=== PATIENT | female | born 1990 | race Caucasian/White ===

== ENCOUNTER 2025-01-28 14:46 | Outpatient (REF) | payer MEDICAID, SELFPAY ==
--- OUTSIDE RECORDS SUMMARY | 2025-01-28 13:45 | XMS_ITS | Encounter Summary ---
Author Organization [employer] Address [address] [facility] 7[address] [place] [address] Care Team Providers Care Geology Professor Name Role Phone June De Jesus Primary Care Provider [phone] Encounter Details Date Type Department Care Team ([facility] Contact Info) Description 01/28/2025 1:45 PM EDT Office Visit [facility] [address] [place] [address] June De Jesus FNP [address] [place] [address] Well adult exam (Primary Dx) Social History Tobacco Use Types Packs/Day Years Used Date Smoking Tobacco: Never Passive Smoke Exposure: Never Smokeless Tobacco: Never Tobacco Cessation:Counseling Given: Not Answered Depression Answer Date Recorded Patient Health Questionnaire-9 Score 0 01/28/2025 Patient Health Questionnaire-9 Score 0 01/28/2025 Last PHQ-9: Questionnaire Data Not on file 1 Housing Stability Answer Date Recorded What is your housing situation today? I have lindy finney 01/28/[address] you li ve. Do you have problems with any of the following? None of the above 01/28/2025 Food Insecurity Answer Date Recorded Within the past 12 months, y ou worried that your food would run out before you got money to buy more: Never True 01/28/2025 Within the past 12 months,th e food you bought just didn't last and you didn't have enough money to get more: Never True Transportation Answer Date Recorded In the past 12 months, has l ack of transportation kept you from medical appts, meetings, work or from getting things needed for daily living? No 01/28/2025 Utilities Answer Date Recorded In the past 12 months, has t he electric, gas, oil or water company threatened to shut off services in your home? No 01/28/2025 Depression Answer Date Recorded Patient Health Questionnaire-2 Score 0 01/28/2025 Internet Access Answer Date Recorded Internet Access Q1 Yes 01/28/2025 Internet Access Q2 Not on file 01/28/2025 Comments Unknown Sex and Gender Information Value Date Recorded Sex Assigned at Female 01/31/2022 10:17 AM EDT Legal Sex Female 10:17 AM EDT Gender Identity Female 09/21/2022 3:00 PM EDT Sexual Orientation Straight 01/31/2022 10 :17 AM EDT documented as of this encounter Last Filed Vital Signs Vital Sign Reading Time Taken Comments Blood Pressure 138/72 01/28/2025 1:44 PM EDT Pulse 94 01/28/2025 1:44 PM EDT Temperature 36.9 C (98.4 F) 01/28/2025 1:44 PM EDT Respiratory Rate 16 01/28/2025 1:44 PM EDT Oxygen Saturation 96% 01/28/2025 1:44 PM EDT Inhaled Oxygen Concentration - - Weight 63.2 kg (139 lb 4 oz) 01/28/2025 1:44 PM EDT Height 152 cm (4' 11.84 ) 01/28/2025 1:44 PM EDT Body Mass Index 27.34 01/28/2025 1:44 PM EDT documented in this encounter Functional Status * Over the past 2 weeks, how often have you been bothered by any of the following problems? Question Answer Date of Assessment Author Patient Health Questionnaire -2 Score 0 01/28/2025 3:18 PM EDT Sharri Foss MA * Little interest or pleasure in doing things Answer Date of Assessment Author Not at all 01/28/2025 3:18 PM EDT Sharri Carrizales MA * Feeling down, depressed, or hopeless Answer Date of Assessment Author Not at all 01/28/2025 3:18 PM EDT Sharri Carrizales MA * Trouble falling or staying asleep, or sleeping too much Answer Date of Assessment Author Not at all 01/28/2025 3:18 PM EDT Sharri Carrizales MA * Feeling tired or having little energy Answer Date of Assessment Author Not at all 01/28/2025 3:18 PM EDT Sharri Carrizales MA * Poor appetite or overeating Answer Date of Assessment Author Not at all 01/28/2025 3:18 PM EDT Sharri Carrizales MA * Feeling bad about yourself - or that you are a failure or have let yourself or your family down Answer Date of Assessment Author Not at all 01/28/2025 3:18 PM EDT Sharri Carrizales MA * Trouble concentrating on things, such as reading the newspaper or watching television Answer Date of Assessment Author Not at all 01/28/2025 3:18 PM EDT Sharri Carrizales MA * Moving or speaking so slowly that other people could have noticed? Or the opposite - being so fidgety or restless that you have been moving around a lot more than usual. Answer Date of Assessment Author Not at all 01/28/2025 3:18 PM EDT Sharri Carrizales MA * Thoughts that you would be better off or hurting yourself in some way Answer Date of Assessment Author Not at all 01/28/2025 3:18 PM EDT Sharri Carrizales MA * Patient Health Questionnaire-9 Score Answer Date of Assessment Author 0 01/28/2025 3:18 PM EDT Sharri Carrizales MA * Over the last 2 weeks, how often have you been bothered by any of the following problems? Question Answer Date of Assessment Author Feeling nervous, anxious, or on edge 0 01/28/2025 3:17 PM EDT Sharri Foss MA Not being able to stop or control worrying 0 01/28/2025 3:17 PM EDT Sharri Foss MA Worrying too much about different things 0 01/28/2025 3:17 PM EDT Sharri Foss MA Trouble relaxing 0 01/28/2025 3:17 PM EDT Sharri Stafford, [place] Being so restless that it is hard to sit still 0 01/28/2025 3:17 PM EDT Sharri Foss MA Becoming easily annoyed or irritable 0 01/28/2025 3:17 PM EDT Sharri Foss MA Feeling afraid as if somethi ng awful might happen 0 01/28/2025 3:17 PM EDT Sharri Foss MA GORDON-7 Total Score 0 01/28/2025 3:17 PM EDT Sharri Foss MA documented as of this encounter Plan of Treatment Upcoming Encounters Date Type Department Care Team (Late st Contact Info) Description 02/25/2025 2:15 PM EST Procedure Visit [facility] [address] [place] [phone] Laura Stoner CNM [address] [place] [address] 03/11/2025 2:30 PM EST Office Visit [facility] [address] [place] [phone] June De Jesus FNP [address] [place] [address] Scheduled Orders Name Type Priority Associated Diagnoses Orde r Schedule Hepatitis B Core Antibody, Total Lab Routine Well adult exam Expected: 01/28/2025 (Approximate), Expires: 01/28/2026 Hepatitis B Surface Antibody, Qualitative Lab Routine Well adult exam Expected: 01/28/2025 (Approximate), Expires: 01/28/2026 Hepatitis B surface antigen, EIA Lab Routine Well adult exam Expected: 01/28/2025 (Approximate), Expires: 01/28/2026 Hepatitis C Antibody with Reflex to HCV, RNA, Quantitative, Real-Time PCR Lab Routine Well adult exam Expected: 01/28/2025, Expires: 01/28/2026 HIV-1/2 Antigen and Antibodies, Fourth Generation, with Reflexes Lab Routine Well adult exam Expected: 01/28/2025 (Approximate), Expires: 01/28/2026 Hemoglobin A1c Lab Routine Well adult exam Expected: 01/28/2025 (Approximate), Expires: 01/28/2026 Chlamydia/N. Gonorrhoeae, PCR, Urine Lab Routine Well adult exam Ordered: 01/28/2025 documented as of this encounter Procedures Procedure Name Priority Date/Time Associated Diagnosis Comments CBC WITH AUTO DIFFERENTIAL Routine 01/28/2025 3:00 PM EDT Well adult exam TSH Routine 01/28/2025 3:00 PM EDT Well adult exam LIPID PANEL, STANDARD Routine 01/28/2025 3:00 PM EDT Well adult exam COMPREHENSIVE METABOLIC PANEL Routine 01/28/2025 3:00 PM EDT Well adult exam documented in this encounter Results * (ABNORMAL) Lipid Panel, Standard (01/28/2025 3:00 PM EDT) Triglycerides 117 <150 mg/dL [facility] Comment:Desirable Triglyceri de: less than 150 mg/dLBorderline High Triglyceride 150-199 mg/dLHigh Triglyceride: 200-499 mg/dLVery High Triglyceride: greater than or equal to 5OO mg/dL Cholesterol 318(H) <200 mg/dL [facility] Comment:Desirable Cholestero l: less than 200 mg/dLBorderline High Cholesterol: 200-239 mg/dLHigh Cholesterol: greater than 239 mg/dL LDL Cholesterol Calculated 209(H) <100 mg/dL [facility] Comment:Desirable LDL: less than 100 mg/dLNear Optimal/Above Optimal LDL: 110- 129 mg/dLBorderline High LDL: 130-159 mg/dLHigh LDL: 160-189 mg/dLVery High LDL: greater than or equal to 190 mg/dL HDL Cholesterol 86 >40 mg/dL [facility] Comment:Desirable HDL: great er than 40 mg/dL Note: This HDL assay may give artificially low results in patients with liver disease. Blood Venous blood specimen / Unknown 01/28/2025 3:00 PM EDT 01/28/2025 4:28 PM EDT us June De Jesus [employer] CONSULT[employer] LAB BLOOD ORDERABLES Final Res ult [facility] [address] [place] [phone] [phone] * (ABNORMAL) CBC auto differential (01/28/2025 3:00 PM EDT) White Blood Count 5.5 4.8 - 10.8 X10*3/uL [facility] Red Blood Count 4.67 4.20 - 5.50 X10*6/uL [facility] Hemoglobin 10.4(L) 12.0 - 16.0 g/dl [facility] Hematocrit 35.2(L) 37.0 - 47.0 % [facility] Mean Corpuscular Volume 75.4(L) 80.0 - 98.0 fL [facility] Mean Corpuscular Hemoglobin 22.3(L) 27.0 - 33.0 pg [facility] Mean Corpuscular HGB Conc 29.5(L) 31.0 - 35.0 g/dl [facility] Red Cell Distribution Width 16.9(H) 11.0 - 16.0 % [facility] Platelet Count 316 160 - 400 X10*3/uL [facility] Mean Platelet Volume 10.6 9.4 - 12.3 fL [facility] Neutrophils Percent Auto 61.3 45 - 73 % [facility] Imm Gran Pct Auto 0.2 0.0 - 0.4 % [facility] Lymphocytes Percent Auto 29.4 20 - 40 % [facility] Monocytes Percent Auto 7.1 2 - 11 % [facility] Eosinophils Percent Auto 0.9 0 - 4 % [facility] Basophils Percent Auto 1.1 0 - 2 % [facility] NRBC Pct Auto 0.0 0.0 - 0.2 /100WBC [facility] Neutrophils Absolute Auto 3.4 2.0 - 8.3 x10*3/uL [facility] Imm Gran Abs Auto 0.01 0.00 - 0.03 X10*3/uL [facility] Lymphocytes Absolute Auto 1.6 1.2 - 4.9 X10*3/uL [facility] Monocytes Absolute Auto 0.4 0.1 - 1.2 X10*3/uL [facility] Eosinophils Absolute Auto 0.1 0.0 - 0.4 X10*3/uL [facility] Basophils Absolute Auto 0.1 0.0 - 0.2 X10*3/uL [facility] NRBC Abs Auto 0.000 0.0 - 0.012 X10*3/uL [facility] Blood Venous blood specimen / Unknown 01/28/2025 3:00 PM EDT 01/28/2025 4:28 PM EDT [facility] B[facility] ORDER[facility] Final Res ult Performing Organization Address [facility]/ZIP Co de Phone Number [facility] [address] [place] [address] [phone] * TSH (01/28/2025 3:00 PM EDT) Thyroid Stimulating Hormone 1.68 0.32 - 4.0 uIU/mL [facility] Comment:TSH 3rd Generation ( [facility]) Blood Venous blood specimen / Unknown 01/28/2025 3:00 PM EDT 01/28/2025 4:28 PM EDT [facility] LAB BLOOD ORDERABLES Final Res ult Performing Organization Address [facility]/ZIP Co de Phone Number [facility] [address] [place] [phone] [phone] * (ABNORMAL) Comprehensive Metabolic Panel (01/28/2025 3:00 PM EDT) Sodium 142 135 - 145 mmol/L [facility] Potassium 4.1 3.3 - 5.1 mmol/L [facility] Chloride 108 96 - 108 mmol/L [facility] Carbon Dioxide 25 22 - 29 mmol/L [facility] Anion Gap 13 12 - 20 [facility] Urea Nitrogen (BUN) 8(L) 9 - 16 mg/dL [facility] Creatinine, Serum 0.65 0.5 - 1.4 mg/dL [facility] Estimated Glomerular Filt Rate >60 [facility] Comment:Chronic Kidney Disea se: Estimated GFR < 60 mL/min/1.17p6Joiodz Kidney Disease: Estimated GFR < 15 mL/min/1.73m2 Glucose 103 60 - 115 mg/dL [facility] Calcium 9.4 8.4 - 10.2 mg/dL [facility] Bilirubin, Total 0.4 0.0 - 1.0 mg/dL [facility] Aspartate Amino Transferase 25 5 - 31 U/L [facility] Alanine Aminotransferase 33(H) 0 - 31 U/L [facility] Total Protein 8.2(H) 6.5 - 8.0 g/dL [facility] Albumin Level 4.6 3.5 - 5.0 g/dL [facility] Alkaline Phosphatase 96 39 - 117 U/L [facility] Blood Venous blood specimen / Unknown 01/28/2025 3:00 PM EDT 01/28/2025 4:28 PM EDT June SINGH LAB BLOOD ORDERABLES Final Res ult Performing Organization Address City/State/[facility] Co de Phone Number [facility] [address] [place] [phone] documented in this encounter Visit Diagnoses Diagnosis Well adult exam- Primary Routine general medical examination at a health care facility documented in this encounter Additional Health Concerns Assessment Noted Time PHQ-9 Depression Total Score: 0 01/29/20 3:18 PM EDT documented as of this encounter Care Teams Geology Professor Relationship Specialty Start Date End Date June De Jesus FNP [address] [place] [phone] PCP - General Family Medicine 01/28/25 documented as of this encounter
[2025-01-28 16:32] LABS: MANUAL DIFF FLAG NO
[2025-01-28 16:53] LABS: Hematocrit 35.2 % (37.0-47.0); Hemoglobin 10.4 g/dl (12.0-16.0); Imm Gran Abs Auto 0.01 X10*3/uL (0.00-0.03); Imm Gran Pct Auto 0.2 % (0.0-0.4); Lymphocytes Absolute Auto 1.6 X10*3/uL (1.2-4.9); Mean Corpuscular HGB Conc 29.5 g/dl (31.0-35.0); Mean Corpuscular Hemoglobin 22.3 pg (27.0-33.0); Mean Corpuscular Volume 75.4 fL (80.0-98.0); NRBC Abs Auto 0.000 X10*3/uL (0.0-0.012); NRBC Pct Auto 0.0 /100WBC (0.0-0.2); Platelet Count 316 X10*3/uL (160-400); Red Blood Count 4.67 X10*6/uL (4.20-5.50); White Blood Count 5.5 X10*3/uL (4.8-10.8)
[2025-01-28 17:12] LABS: Alanine Aminotransferase 33 U/L (0-31); Albumin Level 4.6 g/dL (3.5-5.0); Alkaline Phosphatase 96 U/L (39-117); Anion Gap 13 (12-20); Aspartate Amino Transferase 25 U/L (5-31); Blood Urea Nitrogen 8 mg/dL (9-16); Calcium 9.4 mg/dL (8.4-10.2); Carbon Dioxide 25 mmol/L (22-29); Chloride 108 mmol/L (96-108); Cholesterol 318 mg/dL (<200); Estimated Glomerular Filt Rate > 60; HDL Cholesterol 86 mg/dL (>40); Potassium 4.1 mmol/L (3.3-5.1); Sodium 142 mmol/L (135-145); Total Protein 8.2 g/dL (6.5-8.0); Triglycerides 117 mg/dL (<150)
[2025-01-28 17:16] LABS: Thyroid Stimulating Hormone 1.68 uIU/mL (0.32-4.0)
--- OUTSIDE RECORDS SUMMARY | 2025-01-28 19:15 | XMS_ITS | Encounter Summary ---
Author Organization [employer] Address [address] [place] [address] 7 [place] [address] Care Team Providers Care Fur Floor Worker Name Role Phone June De Jesus SAMANTHA Primary Care Provider Reason for Visit * Reason Onset Date Comments CHW - New Patient Assistance 11/11/2024 Encounter Details Date Type Department Care Team ([facility] Contact Info) Description 11/11/2024 Telephone [facility] MEDICINE [address] [place] [address] Omar Rogers MD [address] [place] [address] CHW - New Patient Assistance Social History Tobacco Use Types Packs/Day Years Used Date Smoking Tobacco: Never Smokeless Tobacco: Never Comments Unknown Sex and Gender Information Value Date Recorded Sex Assigned at Female 01/31/2022 10:17 AM EDT Legal Sex Female 10:17 AM EDT Gender Identity Female 09/21/2022 3:00 PM EDT Sexual Orientation Straight 01/31/2022 10 :17 AM EDT documented as of this encounter Miscellaneous Notes * Telephone Encounter - Rosie Huerta - 11/11/2024 3:35 PM EDT Patient added to [facility] New Patient wait list as 11-11-2024 * Telephone Encounter - Abdoul Hubbard - 11/11/2024 2:49 PM EDT TC from caller requesting NEW PATIENT visit . Insurance name : [facility] Location : [facility] Demographic information updated documented in this encounter Plan of Treatment Upcoming Encounters Date Type Department Care Team (Late st Contact Info) Description 02/25/2025 2:15 PM EST Procedure Visit [facility] [address] [place] [phone] Laura Stoner CNM [address] [place] [address] 03/11/2025 2:30 PM EST Office Visit [address] [phone] June De Jesus FNP [address] [place] [address] documented as of this encounter Visit Diagnoses Not on filedocumented in this encounter Care Teams Fur Floor Worker Relationship Specialty Start Date End Date June De Jesus FNP [address] [place] [address] [phone] PCP - General Family Medicine 01/28/25 documented as of this encounter
--- OUTSIDE RECORDS SUMMARY | 2025-01-28 19:15 | XMS_ITS | Encounter Summary ---
Author Organization [employer] Address [address] [facility] [address] [place] [address] Care Team Providers Care Crew Foreman Name Role Phone Unavailable Primary Care Provider Unavailabl e Reason for Visit * Reason Onset Date Comments Chart Prep 01/27/2025 Encounter Details Date Type Department Care Team ([facility] Contact Info) Description 01/27/2025 Telephone [facility] MEDICINE [address] [place] [address] June De Jesus FNP [address] [place] [address] Chart Prep Social History Tobacco Use Types Packs/Day Years Used Date Smoking Tobacco: Never Smokeless Tobacco: Never Depression Answer Date Recorded Patient Health Questionnaire-9 [...] encounter Miscellaneous Notes * Telephone Encounter - Davis Amin MA - 01/27/2025 3:09 PM EDT Chart Prep Labs: not applicable Images: not applicable Referrals: not applicable Vaccines due: Flu, Hep B, and HPVIPV Vaccines Screenings: pap smearAlcohol/Substance Use Screening Overdue care gaps: SBIRT, SDOH, PHQ-9, and TobaccoLMP documented in this encounter Plan of Treatment Upcoming Encounters Date Type Department Care Team (Late st Contact Info) Description 02/25/2025 2:15 PM EST Procedure Visit [facility] [address] [place] [phone] Laura Stoner CNM [address] [place] [address] 03/11/2025 2:30 PM EST Office Visit [facility] [address] [place] [phone] June De Jesus FNP [address] [place] [address] documented as of this encounter Visit Diagnoses Not on filedocumented in this encounter
--- OUTSIDE RECORDS SUMMARY | 2025-01-28 19:15 | XMS_ITS | Encounter Summary ---
Author Organization [employer] Address [address] [facility] [address] [place] [address] Care Team Providers Care Senior Premium Auditor Name Role Phone June De Jesus TRAINING EXECUTIVE Primary Care Provider [phone] Encounter Details Date Type Department Care Team (Latest Contact Info) Description 01/28/2025 Travel Social History Tobacco Use Types Packs/Day Years Used Date Smoking Tobacco: Never Passive Smoke Exposure: Never Smokeless Tobacco: Never Depression Answer Date [...] AM EDT documented as of this encounter Functional Status * Over the [...] relaxing 0 01/28/2025 3:17 PM EDT Sharri Stafford MA Being so restless that it is [...] Description 02/25/2025 2:15 PM EST Procedure Visit [facility] [address] [place] [phone] Laura Stoner CNM [address] [place] [address] 03/11/2025 2:30 PM EST Office Visit [facility] [address] [place] [address] June De Jesus FNP [address] [place] [address] documented as of this encounter Visit Diagnoses Not on filedocumented in this encounter Additional Health Concerns Assessment Noted Time PHQ-9 Depression Total Score: 0 01/29/20 3:18 PM EDT documented as of this encounter Care Teams Senior Premium Auditor Relationship Specialty Start Date End Date June De Jesus FNP [address] [place] [address] PCP - General Family Medicine 01/28/25 documented as of this encounter
--- OUTSIDE RECORDS SUMMARY | 2025-01-28 19:15 | XMS_ITS | Clinical Summary ---
Author Organization [facility] Address [address] [place] [address] [address] [place] [address] Care Team Providers Care Handle Rounder Operator Name Role Phone June De Jesus Primary Care Provider [phone] Allergies No known active allergies Medications fluticasone (Flonase Allergy Relief) 50 MCG/ACT nasal spray spray 2 spray by intranasal route every day in each nostril 6 01/29/20 25 Discontinu ed(Therapy completed) ergocalciferol (Vitamin D-2) 1.25 MG (61334 UT) capsule take 1 capsule by oral route every week 6 01/29/20 25 Discontinu ed(Therapy completed) loratadine (Claritin) 10 MG tablet Take 1 tablet by mouth at bed time. 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 Vitamin D deficiency 04/15/2015 Encounters Date Type Department Care Team Description 01/28/2025 1:45 PM EDT Office Visit [facility] [address] [place] [address] [phone] June De Jesus FNP Well adult exam (Primary Dx) 01/28/2025 Travel 01/27/2025 Telephone [facility] [address] [place] [address] June De Jesus FNP Chart Prep 01/21/2025 Patient Outreach [facility] [address] [place], [place] [phone] Omar Rogers MD Pre-visit Planning (Pre visit planning LVM ) 01/21/2025 Travel 11/11/2024 Telephone [facility] [address] [place] [phone] Omar Rogers MD CHW - New Patient Assistance from Last 3 Months Immunizations Immunization Administration Dates Next Due DTP 07/15/1996 Influenza injectable quadrivalent preservative f ree 02/15/2019 Influenza, IIV3, injectable 03/02/2014 MMR 07/15/1996 OPV, Trivalent 07/15/1996 Tdap 08/16/2016,04/28/2014 Family History Medical History Relation Name Comments Hyperlipidemia Father Alzheimer's disease Maternal Grandfather Alzheimer's disease Maternal Grandmother Asthma Mother Otitis media Mother Hyperlipidemia Sister Relation Name Status Comments Father Maternal Grandfather Maternal Grandmother Mother Sister Social History Tobacco Use Types Packs/Day Years [...] Orientation Straight 01/31/2022 10 :17 AM EDT Last Filed Vital Signs Vital Sign Reading [...] Mass Index 27.34 01/28/2025 1:44 PM EDT Plan of Treatment Upcoming Encounters Date Type Department Care Team (Late st Contact Info) Description 02/25/2025 2:15 PM EST Procedure Visit [address] [address] Laura Stoner, CNM [address] [place] [address] 03/11/2025 2:30 PM EST Office Visit [address] [address] June De Jesus, SAMANTHA [address] [place] [address] Health Maintenance Due Date Last Done Comments HIV Screening 1991 IPV Vaccines (2 of 3 - 4-dos e series) 08/12/1996 07/15/1996 Family Planning (PISQ) 07/30/2006 HPV Vaccines (1 - 3-dose series) 07/30/2006 Hepatitis C Screening 07/30/2009 Hepatitis B Vaccines (1 of 3 - 19+ 3-dose series) 07/30/2010 Pap Smear 07/30/2012 Cervical Cancer Screening 07/30/2021 HPV/Cotest 07/30/2021 COVID-19 Vaccine (1 - 2023-2 5 season) 2024 Influenza Vaccine (#1) 2024 9, 03/02/2014 Alcohol/Substance Use Screening 01/28/2026 01/28/2025 Depression Screening 01/28/2026 01/28/2025, 01/28/2025 Disability Screening 01/28/2026 01/28/2025 SDOH Screening 01/28/2026 01/28/2025 Tobacco Screening 01/28/2026 01/28/2025 DTaP/Tdap/Td Vaccines (4 - T d or Tdap) 08/16/2026 08/16/2016, 04/28/2014, 07/15/1996 Zoster Vaccines (1 of 2) 07/30/2041 RSV Patients and Patients Aged 60 years or older (1 - 1-dose 75+ series) 07/30/2066 HIB Vaccines Aged Out No longer eligi ble based on patient's age to complete this topic Hepatitis A Vaccines Aged Out No long er eligible based on patient's age to complete this topic Meningococcal B Vaccine Aged Out No l onger eligible based on patient's age to complete this topic Meningococcal Vaccine Aged Out No andi jennifer eligible based on patient's age to complete this topic Pneumococcal Vaccine: Pediatrics (0 to 5 Years) and At-Risk Patients (6 to 49) Years Aged Out No longer eligible b ased on patient's age to complete this topic RSV under 20 months Aged Out No longe r eligible based on patient's age to complete this topic Rotavirus Vaccines Aged Out No longer eligible based on patient's age to complete this topic Procedures Procedure Name Priority Date/Time Associated Diagnosis Comments LIPID PANEL, STANDARD Routine 01/28/2025 3:00 PM EDT Well adult exam CBC WITH AUTO DIFFERENTIAL Routine 01/28/2025 3:00 PM EDT Well adult exam TSH Routine 01/28/2025 3:00 PM EDT Well adult exam COMPREHENSIVE METABOLIC PANEL Routine 01/28/2025 3:00 PM EDT Well adult exam from Last 3 Months Results * (ABNORMAL) CBC auto differential (01/28/2025 3:00 PM EDT) White Blood Count 5.5 4.8 - 10.8 X10*3/uL [facility] Red Blood Count 4.67 4.20 - 5.50 X10*6/uL [facility] Hemoglobin 10.4(L) 12.0 - 16.0 g/dl [facility] Hematocrit 35.2(L) 37.0 - 47.0 % [facility] Mean Corpuscular Volume 75.4(L) 80.0 - 98.0 fL [facility] Mean Corpuscular Hemoglobin 22.3(L) 27.0 - 33.0 pg [facility] Mean Corpuscular HGB Conc 29.5(L) 31.0 - 35.0 g/dl [facility] Red Cell Distribution Width 16.9(H) 11.0 - 16.0 % [facility] Platelet Count 316 160 - 400 X10*3/uL [facility] Mean Platelet Volume 10.6 9.4 - 12.3 fL [facility] Neutrophils Percent Auto 61.3 45 - 73 % [facility] Imm Gran Pct Auto 0.2 0.0 - 0.4 % [facility] Lymphocytes Percent Auto 29.4 20 - 40 % [facility] Monocytes Percent Auto 7.1 2 - 11 % [facility] Eosinophils Percent Auto 0.9 0 - 4 % [facility] Basophils Percent Auto 1.1 0 - 2 % [facility] NRBC Pct Auto 0.0 0.0 - 0.2 /100WBC [facility] Neutrophils Absolute Auto 3.4 2.0 - 8.3 x10*3/uL [facility] Imm Gran Abs Auto 0.01 0.00 - 0.03 X10*3/uL [facility] Lymphocytes Absolute Auto 1.6 1.2 - 4.9 X10*3/uL [facility] Monocytes Absolute Auto 0.4 0.1 - 1.2 X10*3/uL [facility] Eosinophils Absolute Auto 0.1 0.0 - 0.4 X10*3/uL [facility] Basophils Absolute Auto 0.1 0.0 - 0.2 X10*3/uL [facility] NRBC Abs Auto 0.000 0.0 - 0.012 X10*3/uL [facility] Blood Venous blood specimen / Unknown 01/28/2025 3:00 PM EDT 01/28/2025 4:28 PM EDT [employer] [facility] LAB BLOOD ORDERABLES Final Res ult Performing Organization Address [facility]/ZIP Co de Phone Number [facility] [address] [place] [phone] * TSH (01/28/2025 3:00 PM EDT) Thyroid Stimulating Hormone 1.68 0.32 - 4.0 uIU/mL [facility] Comment:TSH 3rd Generation ( [facility]) Blood Venous blood specimen / Unknown 01/28/2025 3:00 PM EDT 01/28/2025 4:28 PM EDT [employer] [facility] BLOOD ORDERABLES Final Res ult Performing Organization Address City/[facility]/ZIP Co de Phone Number [facility] [address] [place] [phone] * (ABNORMAL) Lipid Panel, Standard (01/28/2025 3:00 PM EDT) Triglycerides 117 <150 mg/dL [facility] Comment:Desirable Triglyceri de: less than 150 mg/dLBorderline High Triglyceride 150-199 mg/dLHigh Triglyceride: 200-499 mg/dLVery High Triglyceride: greater than or equal to 5OO mg/dL Cholesterol 318(H) <200 mg/dL [facility] Comment:Desirable Cholestero l: less than 200 mg/dLBorderline High Cholesterol: 200-239 mg/dLHigh Cholesterol: greater than 239 mg/dL LDL Cholesterol Calculated 209(H) <100 mg/dL [facility] Comment:Desirable LDL: less than 100 mg/dLNear Optimal/Above Optimal LDL: 110- 129 mg/dLBorderline High LDL: 130-159 mg/dLHigh LDL: 160-189 mg/dLVery High LDL: greater than or equal to 190 mg/dL HDL Cholesterol 86 >40 mg/dL [facility] Comment:Desirable HDL: great er than 40 mg/dL Note: This HDL assay may give artificially low results in patients with liver disease. Blood Venous blood specimen / Unknown 01/28/2025 3:00 PM EDT 01/28/2025 4:28 PM EDT us Junekaden De Jesus [employer] LAB BLOOD ORDERABLES Final Res ult [facility] [address] [place] [phone] * (ABNORMAL) Comprehensive Metabolic Panel (01/28/2025 3:00 PM EDT) Sodium 142 135 - 145 mmol/L [facility] Potassium 4.1 3.3 - 5.1 mmol/L [facility] Chloride 108 96 - 108 mmol/L [facility] Carbon Dioxide 25 22 - 29 mmol/L [facility] Anion Gap 13 12 - 20 [facility] Urea Nitrogen (BUN) 8(L) 9 - 16 mg/dL [facility] Creatinine, Serum 0.65 0.5 - 1.4 mg/dL [facility] Estimated Glomerular Filt Rate >60 [facility] Comment:Chronic Kidney Disea se: Estimated GFR < 60 mL/min/[id number] Kidney Disease: Estimated GFR < 15 mL/min/1.73m2 Glucose 103 60 - 115 mg/dL [facility] Calcium 9.4 8.4 - 10.2 mg/dL [facility] Bilirubin, Total 0.4 0.0 - 1.0 mg/dL [facility] Aspartate Amino Transferase 25 5 - 31 U/L [facility] Alanine Aminotransferase 33(H) 0 - 31 U/L [facility] Total Protein 8.2(H) 6.5 - 8.0 g/dL [facility] Albumin Level 4.6 3.5 - 5.0 g/dL [facility] Alkaline Phosphatase 96 39 - 117 U/L [facility] Blood Venous blood specimen / Unknown 01/28/2025 3:00 PM EDT 01/28/2025 4:28 PM EDT us June De Jesus [employer] LAB BLOOD ORDERABLES Final Res ult [facility] [address] [place] [phone] from Last 3 Months [facility] Care Teams Handle Rounder Operator Relationship Specialty Start Date End Date June De Jesus FNP [address] [place] [phone] PCP - General Family Medicine 01/28/25
[2025-01-29 08:20] LABS: HBS Num1 0.50 mIU/mL (0-7.99); HBc Num1 0.21 S/CO (0.00-0.79); HBsAGNum1 0.39 S/CO (0.00-0.99); HIV Num 1 0.08 S/CO (0.00-0.99); Hepatitis B Surface Antigen Negative (Negative); ~HepC Num1 0.08 S/CO (0.00-0.79); ~Hepatitis B Surface Antibody NONREACTIVE (Nonreactive); ~Hepatitis C Antibody Nonreactive (Nonreactive)
== END 2025-01-28 14:47 | disposition home or self-care (01) ==
LOC: HO.HHCL 14:46
PROVIDERS: PCP Nurse Practitioner Family; Visit Provider Nurse Practitioner Family
DX: Z00.00 Encounter for general adult medical examination without abnormal findings (principal); Z11.4 Encounter for screening for human immunodeficiency virus [HIV]; Z11.59 Encounter for screening for other viral diseases
CPT/HCPCS: 36415; 80053; 80061; 83036; 84443; 85025; 86704; 86706; 86803; 87340; 87389

== ENCOUNTER 2025-02-26 05:00 | Outpatient (REF) | payer MEDICAID, SELFPAY ==
[2025-02-28 15:58] LABS: C. trachomatis RNA TMA NOT DETECTED (NOT DETECTED); N. gonorrhoeae RNA TMA NOT DETECTED (NOT DETECTED); Trichomonas (NAAT) NOT DETECTED (NOT DETECTED)
--- OUTSIDE RECORDS SUMMARY | 2025-03-03 15:46 | XMS_ITS | Encounter Summary ---
Author Organization [employer] Address [address] [facility] [address] [place] [address] Care Team Providers Care Travel Rn Name Role Phone June De Jesus FLIGHT HOSTESS Primary Care Provider [phone] Encounter Details Date Type Department Care Team (Latest Contact Info) Description 01/31/2025 Results Follow-Up [facility] [address] [place] [address] June De Jesus FNP [address] [place] [address] Comprehensive Metabolic Panel, Hepatitis B Core Antibody, Total, TSH, Additional followed-up results: 7 Social History Tobacco Use Types Packs/Day Years [...] AM EDT documented as of this encounter Plan of Treatment Upcoming Encounters Date Type Department Care Team (Late st Contact Info) Description 03/11/2025 2:30 PM EST Office Visit [facility] [address] [place] [address] June De Jesus FNP [address] [place] [address] documented as of this encounter Visit Diagnoses Not on filedocumented in this encounter Additional Health Concerns Assessment Noted Time PHQ-9 Depression Total Score: 0 01/29/20 3:18 PM EDT documented as of this encounter Care Teams Travel Rn Relationship Specialty Start Date End Date June De Jesus FNP [address] [place] [address] PCP - General Family Medicine 01/28/25 documented as of this encounter
--- OUTSIDE RECORDS SUMMARY | 2025-03-03 15:46 | XMS_ITS | Clinical Summary ---
Author Organization [employer] Address [address] [place] [address] 7 [place] [address] Care Team Providers Care Medical Device Sales Consultant Name Role Phone PhiSergey garciaupe SUPERVISOR PIPELINES Primary Care Provider [phone] Allergies No known active allergies Medications rosuvastatin (Crestor) 20 MG tabletIndication s:Familial hypercholesterol emia, unspecified type Take 1 tablet (20 mg) by mouth Once per day. 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 Vitamin D deficiency 04/15/2015 Encounters Date Type Department Care Team Description 02/25/2025 2:15 PM EST Procedure Visit [facility] [address] [place] [phone] Laura Stoner CNM Cervical cancer screening (Primary Dx); Abnormal uterine bleeding; Screening examination for venereal disease 02/25/2025 Travel 02/24/2025 Telephone [facility] [address] [place] [address] [phone] Laura Stoner CNM chart prep 01/31/2025 Telephone [facility] [address] [place] [address] [phone] Huong Lopes, MENA 01/31/2025 Results Follow-Up [facility] [address] [place] [address] [phone] June De Jesus FNP Comprehensive Metabolic Panel, Hepatitis B Core Antibody, Total, TSH, Additional followed-up results: 7 01/28/2025 1:45 PM EDT Office Visit [facility] [address] [place] [address] June De Jesus FNP Well adult exam (Primary Dx); Abnormal uterine and vaginal bleeding, unspecified; Irregular menstruation, unspecified; Otalgia, unspecified laterality; Familial hypercholesterolemia, unspecified type 01/28/2025 Travel 01/27/2025 Telephone [facility] [address] [place] [address] June De Jesus FNP Chart Prep 01/21/2025 Patient Outreach [facility] [address] [place] [phone] Omar Rogers MD Pre-visit Planning (Pre visit planning LVM ) 01/21/2025 Travel from Last 3 Months Immunizations Immunization Administration Dates Next Due DTP 07/15/1996 Influenza injectable quadrivalent preservative f ree 02/15/2019 Influenza, IIV3, injectable 03/02/2014 MMR 07/15/1996 OPV, Trivalent 07/15/1996 Tdap 08/16/2016,04/28/2014 Family History Medical History Relation Name Comments Hyperlipidemia Father Alzheimer's disease Maternal Grandfather Alzheimer's disease Maternal Grandmother Asthma Mother Otitis media Mother Hyperlipidemia Sister Breast cancer Neg Hx Colon cancer Neg Hx Ovarian cancer Neg Hx Relation Name Status Comments Father Maternal Grandfather [...] is your housing situation today? I have lindyrebecca finney 01/28/[address] you [...] Q2 Not on file 01/28/2025 Comments Unknown Intention Date Recorded No desire to become (finding) 1 04/27/2024 Sex and Gender Information Value Date Recorded Sex Assigned at Female 01/31/2022 10:17 AM EDT Legal Sex Female 10:17 AM EDT Gender Identity Female 09/21/2022 3:00 PM EDT Sexual Orientation Straight 01/31/2022 10 :17 AM EDT Last Filed Vital Signs Vital Sign Reading Time Taken Comments Blood Pressure 130/68 02/25/2025 2:19 PM EST Pulse 114 02/25/2025 2:19 PM EST Temperature 36.4 C (97.5 F) 02/25/2025 2:19 PM EST Respiratory Rate 14 02/25/2025 2:19 PM EST Oxygen Saturation 97% 02/25/2025 2:19 PM EST Inhaled Oxygen Concentration - - Weight 59.6 kg (131 lb 6.4 oz) 02/25/2025 2:19 P M EST Height 152 cm (4' 11.84 ) 01/28/2025 1:44 PM EDT Body Mass Index 25.8 01/28/2025 1:44 PM EDT Plan of Treatment Upcoming Encounters Date Type Department Care Team (Late st Contact Info) Description 03/11/2025 2:30 PM EST Office Visit [facility] MEDICINE [address] [place], [place] [phone] June De Jesus FNP [address] [place] [address] Health Maintenance Due Date Last Done Comments IPV Vaccines (2 of 3 - 4-dos e series) 08/12/1996 07/15/1996 HPV Vaccines (1 - 3-dose series) 07/30/2006 Hepatitis B Vaccines (1 of 3 - 19+ 3-dose series) 07/30/2010 Pap Smear 07/30/2012 Cervical Cancer Screening 07/30/2021 HPV/Cotest 07/30/2021 COVID-19 Vaccine (1 - 2024-2 6 season) 2024 Influenza Vaccine (#1) 2024 9, 03/02/2014 Alcohol/Substance Use Screening 01/28/2026 01/28/2025 Depression Screening 01/28/2026 01/28/2025, 01/28/2025 Disability Screening 01/28/2026 01/28/2025 SDOH Screening 01/28/2026 01/28/2025 Tobacco Screening 01/28/2026 01/28/2025 Family Planning (PISQ) 02/25/2026 02/25/2025 DTaP/Tdap/Td Vaccines (4 - T d or Tdap) 08/16/2026 08/16/2016, 04/28/2014, 07/15/1996 Zoster Vaccines (1 of 2) 07/30/2041 RSV Patients and Patients Aged 60 years or older (1 - 1-dose 75+ series) 07/30/2066 HIV Screening Completed 01/28/2025 Hepatitis C Screening Completed 01/28/2025 HIB Vaccines Aged Out No longer eligi [...] Procedure Name Priority Date/Time Associated Diagnosis Comments CHLAMYDIA/N. GONORRHOEAE AND T. VAGINALIS RNA, QUAL,TMA Routine 02/25/2025 3:15 PM EST Screening examination for venereal disease HEMOGLOBIN A1C Routine 01/28/2025 3:00 PM EDT Well adult exam LIPID PANEL, STANDARD Routine 01/28/2025 3:00 PM EDT Well adult exam HIV 1/2 ANTIGEN/ANTIBODY, FOURTH GENERATION W/RFL Routine 01/28/2025 3:00 PM EDT Well adult exam CBC WITH AUTO DIFFERENTIAL Routine 01/28/2025 3:00 PM EDT Well adult exam HEPATITIS C AB W/REFL TO HCV RNA, QN, PCR Routine 01/28/2025 3:00 PM EDT Well adult exam HEPATITIS B SURFACE ANTIGEN, EIA Routine 01/28/2025 3:00 PM EDT Well adult exam HEPATITIS B SURFACE ANTIBODY, QUALITATIVE Routine 01/28/2025 3:00 PM EDT Well adult exam TSH Routine 01/28/2025 3:00 PM EDT Well adult exam HEPATITIS B CORE AB TOTAL Routine 01/28/2025 3:00 PM EDT Well adult exam COMPREHENSIVE METABOLIC PANEL Routine 01/28/2025 3:00 PM EDT Well adult exam from Last 3 Months Results * STI testing add on (NG, CT, Trich) (02/25/2025 3:15 PM EST) Trichomonas (NAAT) NOT DETECTED NOT DETECTED [facility] Comment:The analytical perfo rmance characteristics of thisassay have been determined by [employer]. Themodifications have not been cleared or approved bythe FDA. This assay has been validated pursuant to theCLIA regulations and is used for clinical purposes.For additional information, please refer tohttp://education.[employer]/faq/Trichomonastma(This link is being provided for information/educational purposes only.)THIS TEST WAS PERFORMED AT:[facility] [place] [phone] DENNISON MD CTNG Ref Lab NOT DETECTED NOT DETECTED [facility] NG Ref Lab NOT DETECTED NOT DETECTED [facility] ThinPrep vial Cervix uteri structure / Unknown 02/25/2025 3:15 PM EST 02/26/2025 7:22 AM EST Narrative [facility] - 02/28/2025 3:58 PM EST Collection Date: [id number] by: SANTIAGO Hanson: Cervix us Laura Stoner [facility] CYTOLOGY ORDERABLES F inal Result [facility] [address] [place] [phone] * (ABNORMAL) CBC auto differential (01/28/2025 3:00 PM EDT) White Blood Count 5.5 4.8 - 10.8 X10*3/uL [facility] Red Blood Count 4.67 4.20 - 5.50 X10*6/uL [facility] Hemoglobin 10.4(L) 12.0 - 16.0 g/dl [facility] Hematocrit 35.2(L) 37.0 - 47.0 % [facility] Mean Corpuscular Volume 75.4(L) 80.0 - 98.0 fL [facility] Mean Corpuscular Hemoglobin 22.3(L) 27.0 - 33.0 pg [facility] Mean Corpuscular HGB Conc 29.5(L) 31.0 - 35.0 g/dl [facility] Red Cell Distribution Width 16.9(H) 11.0 - 16.0 % [facility] Platelet Count 316 160 - 400 X10*3/uL [facility] Mean Platelet Volume 10.6 9.4 - 12.3 fL [facility] Neutrophils Percent Auto 61.3 45 - 73 % [facility] Imm Gran Pct Auto 0.2 0.0 - 0.4 % [facility] Lymphocytes Percent Auto 29.4 20 - 40 % [facility] Monocytes Percent Auto 7.1 2 - 11 % [facility] Eosinophils Percent Auto 0.9 0 - 4 % [facility] Basophils Percent Auto 1.1 0 - 2 % [facility] NRBC Pct Auto 0.0 0.0 - 0.2 /100WBC [facility] Neutrophils Absolute Auto 3.4 2.0 - 8.3 x10*3/uL [facility] Imm Gran Abs Auto 0.01 0.00 - 0.03 X10*3/uL [facility] Lymphocytes Absolute Auto 1.6 1.2 - 4.9 X10*3/uL [facility] Monocytes Absolute Auto 0.4 0.1 - 1.2 X10*3/uL [facility] Eosinophils Absolute Auto 0.1 0.0 - 0.4 X10*3/uL [facility] Basophils Absolute Auto 0.1 0.0 - 0.2 X10*3/uL [facility] NRBC Abs Auto 0.000 0.0 - 0.012 X10*3/uL [facility] Blood Venous blood specimen / Unknown 01/28/2025 3:00 PM EDT 01/28/2025 4:28 PM EDT us Junekaden De Jesus SUPERVISOR PIPELINES LAB BLOOD ORDERABLES Final Res ult [facility] [address] [place] [phone] * Hepatitis C Antibody with Reflex to HCV, RNA, Quantitative, Real-Time PCR (01/28/2025 3:00 PM EDT) Hepatitis C Antibody Nonreactive Nonreactive [facility] Comment:Antibodies to HCV no t detected; does not exclude early acuteHCV infection. Blood Venous blood specimen / Unknown 01/28/2025 3:00 PM EDT 01/28/2025 4:28 PM EDT [facility] Final Res ult Performing Organization Address [facility] Co de Phone Number [facility] [address] [place] [phone] * Hepatitis B surface antigen, EIA (01/28/2025 3:00 PM EDT) Hepatitis B Surface Ag Negative Negative [facility] Blood Venous blood specimen / Unknown 01/28/2025 3:00 PM EDT 01/28/2025 4:28 PM EDT [facility] BLOOD ORDERABLES Final Res ult Performing Organization Address [facility] Co de Phone Number [facility] [address] [place] [phone] * Hepatitis B Core Antibody, Total (01/28/2025 3:00 PM EDT) Hepatitis B Core Antibody Nonreactive Nonreactive [facility] Blood Venous blood specimen / Unknown 01/28/2025 3:00 PM EDT 01/28/2025 4:28 PM EDT [facility] BLOOD ORDERABLES Final Res ult Performing Organization Address [facility] de Phone Number [facility] [address] [place] [phone] * HIV-1/2 Antigen and Antibodies, Fourth Generation, with Reflexes (01/28/2025 3:00 PM EDT) HIV AB/AG Nonreactive Nonreactive [facility] Comment:HIV-1 p24 Ag and/or HIV-1/HIV-2 Ab not detected.A test result that is nonreactive does not exclude thepossibility of exposure to or infection with HIV-1 and/orHIV-2. Nonreactive results in this assay for individualswith prior exposure to HIV-1 and/or HIV-2 may be due toantigen and antibody levels that are below the limit ofdetection of this assay.The [employer] HIV Ag/Ab Combo assay result andsupplemental assay results should be interpreted inconjunction with the patient's clinical presentation,history and other laboratory results. If the results areinconsistent with clinical evidence, additional testing issuggested to confirm the result. Blood Venous blood specimen / Unknown 01/28/2025 3:00 PM EDT 01/28/2025 4:28 PM EDT [facility] BLOOD ORDERABLES Final Res ult Performing Organization Address City/[facility]/ZIP Co de Phone Number [facility] [address] [place] [phone] * Hepatitis B Surface Antibody, Qualitative (01/28/2025 3:00 PM EDT) Pathologist [facility] ~Hepatitis B Surface Antibody NONREACTIVE Nonreactive [facility] Comment:Nonreactive: < 8.00 mIU/mL Blood Venous blood specimen / Unknown 01/28/2025 3:00 PM EDT 01/28/2025 4:28 PM EDT June [facility] LAB BLOOD ORDERABLES Final Res ult Performing Organization Address City/[facility]/ZIP Co de Phone Number [facility] [address] [place] [phone] * TSH (01/28/2025 3:00 PM EDT) Thyroid Stimulating Hormone 1.68 0.32 - 4.0 uIU/mL [facility] Comment:TSH 3rd Generation ( [facility]) Blood Venous blood specimen / Unknown 01/28/2025 3:00 PM EDT 01/28/2025 4:28 PM EDT June [facility] LAB BLOOD ORDERABLES Final Res ult Performing Organization Address [facility] Co de Phone Number [facility] [address] [place] [phone] * Hemoglobin A1c (01/28/2025 3:00 PM EDT) Hemoglobin A1c 5.4 <6.0 % [facility] Comment:Hemoglobin A1C Refer ence Range Adults: 4.8 - 6.0 % Non diabetic: < 6.0 % Goal: < 7.0 %Additional Action Suggested: > 8.0 %Note: Hemoglobin A1c results are invalid for patients with abnormal amounts of HbF. Blood transfusions may impact the HbA1c concentration in the patient sample. Estimated Average Glucose 108 mg/dL [facility] Comment:eAG = Estimated ave rage glucose which is %A1C expressed asaverage glucose, using the formula of the [id number]-[id number] Glucose study (ADAG), Diabetes Care, Vol.31,#8,Nov. 2007 Blood Venous blood specimen / Unknown 01/28/2025 3:00 PM EDT 01/28/2025 4:28 PM EDT [facility] BLOOD ORDERABLES Final Res ult Performing Organization Address [facility] Co de Phone Number [facility] [address] [place] [phone] * (ABNORMAL) Lipid Panel, Standard (01/28/2025 3:00 PM EDT) Triglycerides 117 <150 mg/dL [facility] Comment:Desirable Triglyceri de: less than 150 mg/dLBorderline High Triglyceride 150-199 mg/dLHigh Triglyceride: 200-499 mg/dLVery High Triglyceride: greater than or equal to 5OO mg/dL Cholesterol 318(H) <200 mg/dL [facility] Comment:Desirable Cholestero l: less than 200 mg/dLBorderline High Cholesterol: 200-239 mg/dLHigh Cholesterol: greater than 239 mg/dL LDL Cholesterol Calculated 209(H) <100 mg/dL [facility] Comment:Desirable LDL: less than 100 mg/dLNear Optimal/Above Optimal LDL: 110- 129 mg/dLBorderline High LDL: 130-159 mg/dLHigh LDL: 160-189 mg/dLVery High LDL: greater than or equal to 190 mg/dL HDL Cholesterol 86 >40 mg/dL [facility] Comment:Desirable HDL: great er than 40 mg/dL Note: This HDL assay may give artificially low results in patients with liver disease. Blood Venous blood specimen / Unknown 01/28/2025 3:00 PM EDT 01/28/2025 4:28 PM EDT us June De Jesus [facility] LAB BLOOD ORDERABLES Final Res ult [facility] [address] [place] [address] [phone] * (ABNORMAL) Comprehensive Metabolic Panel (01/28/2025 3:00 PM EDT) Sodium 142 135 - 145 mmol/L [facility] Potassium 4.1 3.3 - 5.1 mmol/L [facility] Chloride 108 96 - 108 mmol/L [facility] Carbon Dioxide 25 22 - 29 mmol/L [facility] Anion Gap 13 12 - 20 [facility] Urea Nitrogen (BUN) 8(L) 9 - 16 mg/dL [facility] Creatinine, Serum 0.65 0.5 - 1.4 mg/dL [facility] Estimated Glomerular Filt Rate >60 [facility] Comment:Chronic Kidney Disea se: Estimated GFR < 60 mL/min/[id number] Kidney Disease: Estimated GFR < 15 mL/min/1.73m2 Glucose 103 60 - 115 mg/dL [facility] Calcium 9.4 8.4 - 10.2 mg/dL [facility] Bilirubin, Total 0.4 0.0 - 1.0 mg/dL [facility] Aspartate Amino Transferase 25 5 - 31 U/L [facility] Alanine Aminotransferase 33(H) 0 - 31 U/L [facility] Total Protein 8.2(H) 6.5 - 8.0 g/dL [facility] Albumin Level 4.6 3.5 - 5.0 g/dL [facility] Alkaline Phosphatase 96 39 - 117 U/L [facility] Blood Venous blood specimen / Unknown 01/28/2025 3:00 PM EDT 01/28/2025 4:28 PM EDT us June De Jesus SUPERVIS[employer] PIPELINES LAB BLOOD ORDERABLES Final Res ult [facility] [address] [place] [phone] from Last 3 Months [facility] Care Teams Medical Device Sales Consultant Relationship Specialty Start Date End Date June De Jesus FNP [address] [place] [phone] PCP - General Family Medicine 01/28/25
--- OUTSIDE RECORDS SUMMARY | 2025-03-03 15:46 | XMS_ITS | Encounter Summary ---
Author Organization [employer] Address [address] [place] [address] 7 [place] [address] Care Team Providers Care Mandarin Tutor Name Role Phone June De Jesus BIOLOGY LABORATORY ASSISTANT Primary Care Provider [phone] Reason for Visit * Reason Onset Date Comments CHW - New Patient Assistance 11/11/2024 Encounter Details Date Type Department Care Team ([facility] st Contact Info) Description 11/11/2024 Telephone [facility] MED[facility] [address] [place] [address] Omar Rogers MD [address] [place] [address] CHW - New Patient Assistance Social History [...] 11/11/2024 3:35 PM EDT Patient added to [facility] New Patient wait list as 11-11-2024 * Telephone Encounter - Abdoul Hubbard - 11/11/2024 2:49 PM EDT TC from caller requesting NEW PATIENT visit . Insurance name : [facility] Location : [facility] Demographic information updated documented in this encounter Plan of Treatment Upcoming Encounters Date Type Department Care Team (Late st Contact Info) Description 03/11/2025 2:30 PM EST Office Visit [facility] [address], [place] [phone] June De Jesus FNP [address] [place], [place] [phone] documented as of this encounter Visit Diagnoses Not on filedocumented in this encounter Care Teams Mandarin Tutor Relationship Specialty Start Date End Date June De Jesus FNP [address] [place], [place] [phone] PCP - General Family Medicine 01/28/25 documented as of this encounter
== END 2025-02-26 05:01 | disposition home or self-care (01) ==
LOC: HO.LNP 05:00
PROVIDERS: Visit Provider Advanced Practice Midwife
DX: Z12.4 Encounter for screening for malignant neoplasm of cervix (principal); Z20.2 Contact with and (suspected) exposure to infections with a predominantly sexual mode of transmission
CPT/HCPCS: 87491; 87591; 87626; 87661; 88175